=== PATIENT | female | born 1950 | race Caucasian/White ===

== ENCOUNTER → 2016-11-27 | Day surgery (SDC) | payer BC, MEDICARE ==
[~2016-11-27] MED LIST: DEXAMETHASONE SOD PHOS PF 10 MG/ML SOL IJ ONE
[2016-11-27 13:25] VITALS: BP 144/83; PULSE 73; RESP 18; TEMP 97.8; O2SAT 98
== END | disposition home or self-care (01) ==
LOC: SURG 12:18
PROVIDERS: ATTEND Nurse Anesthetist, Certified Registered
DX: M48.06 Spinal stenosis, lumbar region (principal)
CPT/HCPCS: 64483; 77003; J1100

== ENCOUNTER 2018-09-09 13:04 | Day surgery (SDC) | payer BC, MEDICARE ==
[2018-09-09] MEDS ORDERED: BUPIVACAINE HCL 0.25% MPF 30 ML SOL INFIL ONE (13:39)
[2018-09-09] MEDS ORDERED: DEXAMETHASONE SOD PHOS PF 10 MG/ML SOL IJ ONE (13:39)
[2018-09-09] MEDS ORDERED: FENTANYL 100MCG/2ML SOL ONE (13:50)
[2018-09-09] MEDS ORDERED: MIDAZOLAM 2 MG/2 ML SOL ONE (13:50)
[2018-09-09 14:10] VITALS: RESP 18
[2018-09-09 14:22] VITALS: BP 133/76; PULSE 73; TEMP 98.1; O2SAT 95
== END 2018-09-09 16:28 | disposition home or self-care (01) ==
LOC: SURG 13:04
PROVIDERS: ATTEND Nurse Anesthetist, Certified Registered
DX: M51.17 Intervertebral disc disorders with radiculopathy, lumbosacral region (principal); M99.53 Intervertebral disc stenosis of neural canal of lumbar region
CPT/HCPCS: J2250; J3010; J1100